=== PATIENT | male | born 1995 | race Caucasian/White ===

== ENCOUNTER 2024-04-02 07:31 | Emergency (ER) | payer OTHER ==
[~2024-04-02] VITALS: Ht 170.1 cm; Wt 66.8 kg
[2024-04-02] MEDS ORDERED: DULOXETINE HCL60 MG PO (07:43)
[2024-04-02] MEDS ORDERED: DOVATO 50-3001 EACH PO (07:43)
[2024-04-02] MEDS ORDERED: MORPHINE Sulfate 2 MG/ML SYR IV ONE (07:55)
[2024-04-02] MEDS ORDERED: FAMOTIDINE 50 ML IV ONE (07:55)
[2024-04-02] MEDS ORDERED: SODIUM CHLORIDE 0.9% 1,000 ML IV ONE (07:55)
[2024-04-02] MEDS ORDERED: Ondansetron Hydrochloride 4 MG/2 ML VIAL IV ONE (07:55)
[2024-04-02 08:22] LABS: BASO # 0.1 10*3/uL (0.0-0.1); BASO % 0.6 % (0.0-1.0); EOS # 0.4 10*3/uL (0.0-0.4); EOS % 5.2 % (1.0-4.0); MEAN CELL VOLUME 98.4 fl (80.0-94.0); MEAN CORPUSCULAR HGB 32.7 pg (27.0-31.0); MEAN CORPUSCULAR HGB CONC 33.2 g/dl (33.0-37.0); MEAN PLATELET VOLUME 11.3 fl (9.6-12.3); MONO # 0.8 10*3/uL (0.1-1.0); MONO % 9.1 % (3.0-9.0); NEUT # 3.5 10*3/uL (2.3-7.9); NEUT % 42.9 % (47.0-73.0); PLATELET COUNT AUTOMATED 193 10*3/uL (130-400); RED BLOOD COUNT 4.47 10*6/uL (4.50-5.90); RED CELL DISTRI WIDTH 14.6 % (0-14.5); WHITE BLOOD COUNT 8.2 10*3/uL (4.8-10.8)
[2024-04-02 08:43] LABS: ALKALINE PHOSPHATASE 58 U/L (46-116); BUN 17 mg/dl (9-23); CHLORIDE 103 mmol/L (98-107); SGPT/ALT 30 U/L (5-49); TOTAL PROTEIN 7.1 gm/dL (6.0-8.0)
[2024-04-02 08:51] LABS: BILIRUBIN Negative (Negative); BLOOD Negative (Negative); CLARITY Clear (Clear); COLOR Yellow (Yellow); GLUCOSE Negative (Negative); KETONE Negative (Negative); LEUKO ESTERASE Negative (Negative); NITRITE Negative (Negative); SPECIFIC GRAVITY >= 1.030 (1.001-1.030)
[2024-04-02 09:02] LABS: WBC 0-2 wbc/hpf (0-5)
[2024-04-02 09:03] LABS: MUCOUS TRACE
[2024-04-02] MEDS ORDERED: PEPCID20 MG PO (09:18)
== END 2024-04-02 10:01 | disposition home or self-care (01) ==
LOC: ED 07:31
PROVIDERS: Emergency Medicine
DX: K29.70 Gastritis, unspecified, without bleeding (principal); R11.2 Nausea with vomiting, unspecified; R19.7 Diarrhea, unspecified